=== PATIENT | male | born 2000 | race Caucasian/White ===

== ENCOUNTER 2018-07-06 09:44 | Emergency (ER) | payer MEDICAID, OTHER ==
[2018-07-06] MEDS: predniSONE 20 MG TAB PO (10:16)
[2018-07-06] MEDS: IBUPROFEN 600 MG TAB PO (10:17)
== END 2018-07-06 10:30 | disposition home or self-care (01) ==
LOC: FTE 09:44
DX: H66.91 Otitis media, unspecified, right ear (principal); F17.210 Nicotine dependence, cigarettes, uncomplicated
CPT/HCPCS: 99283; J7512

== ENCOUNTER 2018-12-25 20:20 | Inpatient (IN) | payer MEDICAID ==
[2018-12-26 01:35] LABS: ADD MAN DIFF? NO
[2018-12-26] MEDS: SOD CHLORIDE 0.9% 1,000 ML IV ×3 (01:36→07:30)
[2018-12-26 01:38] LABS: BASOPHILS % 0.4 % (0.0-2.0); EOSINOPHILS # 0.1 10^3/ul (0.0-0.5); EOSINOPHILS % 0.9 % (0.0-7.0); HEMATOCRIT 21.1 % (42.0-52.0); HEMOGLOBIN 7.4 g/dl (14.0-18.0); LYMPHOCYTES % 25.1 % (18.0-55.0); MEAN CORPUSCULAR HGB CONC 35.1 g/dl (32.0-37.0); MEAN CORPUSCULAR VOLUME 85.4 fl (72.0-104.0); MEAN PLATELET VOLUME 10.5 fl (7.4-10.4); MONOCYTE # 0.6 10^3/ul (0.3-0.9); MONOCYTES % 7.6 % (0.0-13.0); NEUTROPHIL # 5.2 10^3/ul (1.6-7.5); NEUTROPHILS % 65.5 % (30.0-74.0); NUCLEATED RED BLOOD CELLS% 0.4 /100WBC (0.0-0.0); PLATELET COUNT 181 10^3/UL (140-415); RED BLOOD COUNT 2.47 10^6/ul (4.70-6.10)
[2018-12-26 01:38] LABS: WHITE BLOOD COUNT 7.9 10^3/ul (4.8-10.8)
[2018-12-26 01:50] LABS: INR 1.04; PARTIAL THROMBOPLASTIN TIME 27.7 Sec (23.0-35.0); PROTIME 13.7 Sec (11.9-14.9); PT RATIO 1.1
[2018-12-26 01:53] LABS: ALANINE AMINOTRANSFERASE 47 IU/L (13-69); ALBUMIN 3.8 g/dl (3.3-4.9); ALBUMIN/GLOBULIN RATIO 1.65; ALKALINE PHOSPHATASE 83 IU/L (42-121); ANION GAP 8 (5-13); ASPARTATE AMINO TRANSFERASE 32 IU/L (15-46); BILIRUBIN,INDIRECT 0.2 mg/dl (0-1.1); BILIRUBIN,TOTAL 0.2 mg/dl (0.2-1.3); BLOOD UREA NITROGEN 10 mg/dl (7-20); CARBON DIOXIDE 27 mmol/L (21-31); CHLORIDE 107 mmol/L (97-110); Estimated GFR > 60 mL/min (>60); GLUCOSE 130 mg/dl (70-220); POTASSIUM 3.5 mmol/L (3.5-5.1); SODIUM 142 mmol/L (135-144); TOTAL PROTEIN 6.1 g/dl (6.1-8.1)
[2018-12-26] MEDS: SOD CHLORIDE 0.9% 100 ML (02:57)
[2018-12-26] MEDS: IOHEXOL 300MG/ML 150 ML BTL (02:57)
[2018-12-26] MEDS ORDERED: ONDANSETRON 4 MG INJ IV (04:00)
[2018-12-26] MEDS ORDERED: ACETAMINOPHEN 325 MG TAB PO (04:00)
[2018-12-26] MEDS ORDERED: NACL 0.9% 3 ML SYG IV (05:30)
[2018-12-26] MEDS: DEXTROSE 5%-0.45% NACL 1,000 ML IV ×2 (06:24→13:31)
[2018-12-26] MEDS: PANTOPRAZOLE 40 MG INJ IV (06:24)
[2018-12-26 07:19] LABS: IRON 75 ug/dl (35-150)
[2018-12-26 07:28] LABS: % IRON SATURATION 24 % SAT (22-52); TOTAL IRON BINDING CAPACITY 315 ug/dl (241-421)
[2018-12-26 07:42] LABS: FERRITIN 42.1 ng/ml (17.9-464.0)
[2018-12-26 13:28] LABS: IMMEDIATE SPIN CROSSMATCH 1 4
[2018-12-26] MEDS: POLYETHYLENE GLYCOL 3350 119 GM POWDER PO (18:28)
[2018-12-26] MEDS: BISACODYL (EC) 5 MG TAB PO (18:28)
[2018-12-26] MEDS: MAGNESIUM CITRATE 300 ML BTL PO (18:35)
[2018-12-26] MEDS: ONDANSETRON 4 MG INJ IV (22:02)
[2018-12-26] MEDS: ACETAMINOPHEN 325 MG TAB PO (22:02)
[2018-12-27] MEDS: DEXTROSE 5%-0.45% NACL 1,000 ML IV ×4 (00:56→22:51)
[2018-12-27] MEDS: PANTOPRAZOLE 40 MG INJ IV (05:28)
[2018-12-27 06:21] LABS: ADD MAN DIFF? NO
[2018-12-27] MEDS: POLYETHYLENE GLYCOL 3350 119 GM POWDER PO (06:22)
[2018-12-27 06:28] LABS: BASOPHILS % 0.3 % (0.0-2.0); EOSINOPHILS # 0.1 10^3/ul (0.0-0.5); EOSINOPHILS % 1.7 % (0.0-7.0); HEMATOCRIT 22.5 % (42.0-52.0); HEMOGLOBIN 7.6 g/dl (14.0-18.0); LYMPHOCYTES # 1.8 10^3/ul (0.8-2.9); LYMPHOCYTES % 30.2 % (18.0-55.0); MEAN CORPUSCULAR HEMOGLOBIN 29.8 pg (29.0-33.0); MEAN CORPUSCULAR HGB CONC 33.8 g/dl (32.0-37.0); MEAN CORPUSCULAR VOLUME 88.2 fl (72.0-104.0); MEAN PLATELET VOLUME 10.8 fl (7.4-10.4); MONOCYTE # 0.6 10^3/ul (0.3-0.9); MONOCYTES % 10.3 % (0.0-13.0); NEUTROPHIL # 3.4 10^3/ul (1.6-7.5); NEUTROPHILS % 57.2 % (30.0-74.0); PLATELET COUNT 153 10^3/UL (140-415); RED BLOOD COUNT 2.55 10^6/ul (4.70-6.10); RED CELL DISTRIBUTION WIDTH 14.6 % (11.5-14.5)
[2018-12-27 06:28] LABS: WHITE BLOOD COUNT 5.9 10^3/ul (4.8-10.8)
[2018-12-27] MEDS: BISACODYL (EC) 5 MG TAB PO (08:12)
[2018-12-27] MEDS: LIDOCAINE 100 MG SYRINGE (16:44)
[2018-12-27] MEDS: PROPOFOL 40 ML (16:44)
[2018-12-27] MEDS: FENTAnyl 50 MCG/ML VIAL (16:44)
[2018-12-27] MEDS ORDERED: MIDAZOLAM 1 MG/ML 2 ML INJ IV (17:00)
[2018-12-27] MEDS ORDERED: TRIMETHOBENZAMIDE 100 MG/ML VIAL IM (17:00)
[2018-12-27] MEDS ORDERED: FENTAnyl 50 MCG/ML VIAL IV ×3 (17:00)
[2018-12-27] MEDS ORDERED: EPHEDrine SULFATE 50 MG/5 ML SYG IV (17:00)
[2018-12-27] MEDS ORDERED: ONDANSETRON 4 MG INJ IV (17:00)
[2018-12-27] MEDS ORDERED: MEPERIDINE 25 MG INJ IV (17:00)
[2018-12-27] MEDS ORDERED: DIPHENHYDRAMINE 50 MG INJ IV (17:00)
[2018-12-27] MEDS ORDERED: HYDROmorphONE 1 MG/5 ML IV SYRINGE IV ×3 (17:00)
[2018-12-27] MEDS ORDERED: IPRATROPIUM (NEB) 0.5 MG/2.5 ML AMP HHN (17:00)
[2018-12-27] MEDS ORDERED: hydrALAzine 20 MG INJ IV (17:00)
[2018-12-27] MEDS ORDERED: ALBUTEROL 0.083% (NEB) 2.5 MG/3 ML AMP HHN (17:00)
[2018-12-27] MEDS ORDERED: OXYCODONE/ACETAMINOPHEN (5/325) TAB PO ×2 (17:00)
[2018-12-27] MEDS ORDERED: LABETALOL HCL 20MG INJ IV (17:00)
[2018-12-28] MEDS: PANTOPRAZOLE 40 MG INJ IV (06:23)
[2018-12-28 06:45] LABS: ADD MAN DIFF? NO
[2018-12-28 06:51] LABS: WHITE BLOOD COUNT 6.9 10^3/ul (4.8-10.8)
[2018-12-28 06:51] LABS: BASOPHILS % 0.3 % (0.0-2.0); EOSINOPHILS # 0.1 10^3/ul (0.0-0.5); EOSINOPHILS % 1.4 % (0.0-7.0); HEMATOCRIT 22.3 % (42.0-52.0); HEMOGLOBIN 7.5 g/dl (14.0-18.0); LYMPHOCYTES # 1.6 10^3/ul (0.8-2.9); LYMPHOCYTES % 23.2 % (18.0-55.0); MEAN CORPUSCULAR HEMOGLOBIN 29.3 pg (29.0-33.0); MEAN CORPUSCULAR HGB CONC 33.6 g/dl (32.0-37.0); MEAN CORPUSCULAR VOLUME 87.1 fl (72.0-104.0); MEAN PLATELET VOLUME 10.7 fl (7.4-10.4); MONOCYTE # 0.7 10^3/ul (0.3-0.9); MONOCYTES % 10.5 % (0.0-13.0); NEUTROPHIL # 4.5 10^3/ul (1.6-7.5); NEUTROPHILS % 64.3 % (30.0-74.0); NUCLEATED RED BLOOD CELLS% 0.3 /100WBC (0.0-0.0); PLATELET COUNT 167 10^3/UL (140-415); RED BLOOD COUNT 2.56 10^6/ul (4.70-6.10); RED CELL DISTRIBUTION WIDTH 14.7 % (11.5-14.5)
[2018-12-28] MEDS: DEXTROSE 5%-0.45% NACL 1,000 ML IV ×2 (07:11→15:31)
[2018-12-28] MEDS: SOD CHLORIDE 0.9% 250 ML IV* (11:54)
[2018-12-28] MEDS: SUCRALFATE (100 MG/ML) 10ML CUP PO (17:56)
== END 2018-12-28 20:45 | disposition home or self-care (01) | DRG 378 ==
LOC: E/R 20:20 → TEL 12-26 03:37
PROVIDERS: Pediatrics
PROC: 0DJ08ZZ Inspection of Upper Intestinal Tract, Via Natural or Artificial Opening Endoscopic (ICD-10-PCS; principal; 2018-12-27 16:25)
PROC: 0DJD8ZZ Inspection of Lower Intestinal Tract, Via Natural or Artificial Opening Endoscopic (ICD-10-PCS; 2018-12-27 16:25)
PROC: 30233N1 Transfusion of Nonautologous Red Blood Cells into Peripheral Vein, Percutaneous Approach (ICD-10-PCS; 2018-12-27 16:25)
PROC: 30233N1 Transfusion of Nonautologous Red Blood Cells into Peripheral Vein, Percutaneous Approach (ICD-10-PCS; 2018-12-27 16:25)
DX: K29.71 Gastritis, unspecified, with bleeding (principal); D62 Acute posthemorrhagic anemia; K64.8 Other hemorrhoids; K62.5 Hemorrhage of anus and rectum; E66.9 Obesity, unspecified; T39.395A Adverse effect of other nonsteroidal anti-inflammatory drugs [NSAID], initial encounter; Y92.89 Other specified places as the place of occurrence of the external cause; Z68.33 Body mass index [BMI] 33.0-33.9, adult
CPT/HCPCS: 36415; 36430; 74177; 80053; 82728; 83540; 85025; 85610; 85730; 86850; 86900; 86901; 86920; 99291-25